=== PATIENT | male | born 1970 | race Caucasian/White ===

== ENCOUNTER 2018-11-15 20:24 | Emergency (ER) | payer BC ==
--- NOTE | 2018-11-15 20:27 | UC ---
Dental HPI - HPI Summary HPI Summary: 48 yo male presents with dental pain. He tells me that he has had bad and brittle teeth his whole life. He is scheduled to have all his teeth pulled the end of December at [facility]. Today he tells me that he was eating lunch and a left lower tooth broke. Has had pain and swelling since that time. He has taken ibuprofen with little relief. He is able to eat and drink, but has significant pain. Denies fever - History of Current Complaint Stated Complaint: DENTAL PAIN Time Seen by Provider: 11/15/18 20:27 Hx Obtained From: Patient Onset/Duration: Sudden Onset Severity: Severe Pain Intensity: 7 Pain Scale Used: 0-10 Numeric - Allergies/Home Medications Allergies/Adverse Reactions: Allergies Allergy/AdvReac Type Severity Reaction Status Date / Time bee venom protein (honey bee) Allergy Severe full body Verified 11/15/18 20:37 hives PMH/Surg Hx/FS Hx/Imm Hx - Additional Past Medical History Additional PMH: None - Surgical History Surgical History: Yes Surgery Procedure, Year, and Place: fx right leg- surgical repair with steel jenna 1990. left hand surgical repair - almost severed thumb - Family History Known Family History: Positive: Hypertension - Social History Occupation: Employed Full-time Lives: With Family Alcohol Use: Occasionally Substance Use Type: None Smoking Status (MU): Light Every Day Tobacco Smoker Household Exposure Type: Cigarettes Review of Systems All Other Systems Reviewed And Are Negative: Yes Constitutional: Positive: Negative Skin: Positive: Negative ENT: Positive: Dental Pain Respiratory: Positive: Negative Cardiovascular: Positive: Negative Neurovascular: Positive: Negative Neurological: Positive: Negative Psychological: Positive: Negative Physical Exam - Summary Physical Exam Summary: GENERAL: NAD. WDWN. No pain distress. SKIN: No rashes, sores, lesions, or open wounds. HEENT: Nose: Nasal mucosa pink and moist. NTTP maxillary and frontal sinus. Throat: Posterior oropharynx without exudates, erythema, or tonsillar enlargement. Uvula midline. NECK: Supple. Nontender. No lymphadenopathy. CHEST: No accessory muscle use. Breathing comfortably and in no distress. CV: Pulses intact. Cap refill <2seconds NEURO: Alert. PSYCH: Age appropriate behavior. Triage Information Reviewed: Yes Vital Signs: Vital Signs: Temp Pulse Resp BP Pulse Ox 98.1 F 79 16 160/91 79 11/15/18 20:32 11/15/18 20:32 11/15/18 20:32 11/15/18 20:32 11/15/18 20:32 Vital Signs Reviewed: Yes Dental: Positive: Percussion Tenderness @ - Tooth #20, Gross Decay/Caries @ - Throughout, Dental Fracture @ - Tooth #20, Abscess @ - Tooth #20. Negative: Cellulitis @, Cervical Lymphadenopathy, Bleeding Dental Complaint Course/Dx - Course Course Of Treatment: iSTOP: Reference #: [id number] Correction to O2% is 97% Dental fracture and possible abscess to Tooth #20. Will rx for clindamycin and tylenol with codeine. Advised to continue ibuprofen and ice the area. Advised to call Oralia hernandez and try to move his appointment sooner - Differential Dx/Diagnosis Provider Diagnosis: Tooth fracture Discharge - Sign-Out/Discharge Documenting (check all that apply): Patient Departure All imaging exams completed and their final reports reviewed: No Studies - Discharge Plan Condition: Stable Disposition: HOME Prescriptions: Acetaminophen with Codeine [Acetaminophen/Codeine Ad 300-30 mg] 1 tab PO Q8H PRN #12 tab MDD 3 PRN Reason: Pain Clindamycin Cap(NF) [Clindamycin Cap 300 mg Cap(NF)] 300 mg PO TID #21 cap Patient Education Materials: Dental Abscess (ED) Referrals: Hans Bean PA [Primary Care Provider] - Additional Instructions: If you develop a fever, shortness of breath, chest pain, new or worsening symptoms - please call your PCP or go to the ED immediately. Your blood pressure was high at todays visit. Please see your primary provider within 4 weeks for recheck and re-evaluation. I recommend that you try to move up your appointment with Oralia Hernandez as soon as possible - Billing Disposition and Condition Condition: STABLE Disposition: Home
[2018-11-15 20:36] VITALS: BP 160/91
[2018-11-15] MEDS ORDERED: Acetaminophen / Codeine* #3 (300 MG/30 MG) TAB PO ONE (20:45)
[2018-11-15] MEDS ORDERED: Clindamycin CAP* 150 MG PO ONE (20:45)
== END 2018-11-15 20:50 | disposition home or self-care (01) ==
LOC: UCEAST 20:24
DX: S02.5XXA Fracture of tooth (traumatic), initial encounter for closed fracture (principal); X58.XXXA Exposure to other specified factors, initial encounter; Y93.89 Activity, other specified; Y92.9 Unspecified place or not applicable; F17.210 Nicotine dependence, cigarettes, uncomplicated
CPT/HCPCS: 99202; A9270-GY; G0463